=== PATIENT | female | born 1945 | race Caucasian/White ===

== ENCOUNTER → 2017-07-24 12:58 | Outpatient (CLI) | payer MEDICARE, SELFPAY ==
--- NOTE | 2017-07-24 13:06 | CT_ITS ---
STUDY: CT SOFT TISSUE NECK WITH CONTRAST REASON FOR EXAM: Female, 71 years old. Left-sided neck mass times one week RADIATION DOSAGE (If Supplied By Facility): CTDIvol = ( 22.53 ) mGy, DLP = ( 686.35 ) mGycm TECHNIQUE: The patient was scanned in a multi-detector CT scanner. High resolution transaxial imaging was performed following intravenous administration of 100CC ml of Isovue 300 contrast material. Sagittal and coronal images were reconstructed. Individualized dose optimization techniques were used for this CT. COMPARISON: None. FINDINGS: Some images are technically limited due to scanning artifact caused by metallic dental work. There is a hyperdense nodule of the anteroinferior left parotid gland measuring 9 mm. Normal bilateral saloon keeper spaces. Normal bilateral parapharyngeal spaces. Normal bilateral carotid spaces. Normal bilateral sublingual and submandibular glands and spaces. Normal visualized nasopharynx. Normal retropharyngeal space. Normal perivertebral space. Normal visualized bilateral faucial tonsils. The visualized tongue, tongue base and oropharynx are normal. The visualized cervical lymph nodes (levels I-) are within normal size limits, and maintain normal morphology. Normal epiglottis, bilateral vallecula and hypopharynx. The pre-epiglottic and paraglottic adipose spaces are normal. Normal visualized bilateral piriform sinuses, aryepiglottic folds, vocal cords, and arytenoid-cricoid articulations. Normal subglottic trachea. Normal bilateral lobes of the thyroid gland. Normal visualized pulmonary apices. Normal visualized paranasal sinuses. There is multilevel degenerative changes of the cervical spine. 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 Several of the images are limited due to scanning artifact caused by metallic dental work. Electronically Signed: Niko Landrum MD at 20:32 EDT , Service support ,
[2017-07-24 13:36] LABS: CREATININE FINGERSTICK 0.7 mg/dL (0.55-1.02); EGFR FINGERSTICK > 60.0000 mL/min (>60)
== END ==
PROVIDERS: Family Provider Family Medicine; PCP Family Medicine; Visit Provider Family Medicine
DX: R22.1 Localized swelling, mass and lump, neck (principal)
CPT/HCPCS: 70491; Q9967

== ENCOUNTER → 2017-09-17 07:22 | Outpatient (CLI) | payer MEDICARE, SELFPAY ==
--- NOTE | 2017-09-17 07:31 | CT_ITS ---
STUDY: CT SOFT TISSUE NECK WITH CONTRAST REASON FOR EXAM: Female, 71 years old. The patient has a history of left parotid gland nodular density. RADIATION DOSAGE (If Supplied By Facility): CTDIvol = ( 23.13 ) mGy, DLP = ( 623.73 ) mGycm TECHNIQUE: The patient was scanned in a multi-detector CT scanner. High resolution transaxial imaging was performed following intravenous administration of 100CC ml of Isovue 300 contrast material. Sagittal and coronal images were reconstructed. Individualized dose optimization techniques were used for this CT. COMPARISON: Comparison is made with prior study dated July 24, 2017. FINDINGS: The previously seen 9 mm hyperdense nodule in the anterior inferior aspect of the left parotid gland is not seen at this time. Normal bilateral pharmacology associate spaces. Normal bilateral parapharyngeal spaces. Normal bilateral carotid spaces. Normal bilateral sublingual and submandibular glands and spaces. Normal visualized nasopharynx. Normal retropharyngeal space. Normal perivertebral space. Normal visualized bilateral faucial tonsils. The visualized tongue, tongue base and oropharynx are normal. The visualized cervical lymph nodes (levels I-) are within normal size limits, and maintain normal morphology. There is no demonstrated solid or cystic mass lesion. There is no abnormal contrast enhancement. Normal epiglottis, bilateral vallecula and hypopharynx. The pre-epiglottic and paraglottic adipose spaces are normal. Normal visualized bilateral piriform sinuses, aryepiglottic folds, vocal cords, and arytenoid-cricoid articulations. Normal subglottic trachea. Normal bilateral lobes of the thyroid gland. Normal visualized pulmonary apices. Normal visualized paranasal sinuses. There is multilevel degenerative changes of the cervical spine. CT/Soft Tissue Neck WITH Contrast IMPRESSION: The previously seen 9 mm nodular density in the anterior inferior aspect of the left parotid gland is not seen at this time. Electronically Signed: Anup Marcus MD at 11:20 EDT Tel [phone], Service support ,
[2017-09-17 07:41] LABS: CREATININE FINGERSTICK 0.7 mg/dL (0.55-1.02); EGFR FINGERSTICK > 60.0000 mL/min (>60)
== END ==
PROVIDERS: Family Provider Family Medicine; PCP Family Medicine; Visit Provider Family Medicine
DX: R22.1 Localized swelling, mass and lump, neck (principal)
CPT/HCPCS: 70491; Q9967

== ENCOUNTER → 2017-10-08 10:55 | Outpatient (CLI) | payer MEDICARE, SELFPAY ==
--- NOTE | 2017-10-08 11:01 | RAD_ITS ---
STUDY: X-RAY - RIGHT KNEE REASON FOR EXAM: Female, 71 years old. KNEE PAIN, WEIGHTBEARING TECHNIQUE: 2 view(s) of the knee. COMPARISON: None. FINDINGS: Normal visualized distal femur. Normal visualized proximal tibia and fibula. Normal proximal tibiofibular articulation. Normal medial femorotibial compartment. Normal lateral femorotibial compartment. There is mild degenerative arthrosis of the patellofemoral articulation. There is a soft tissue prominence in the suprapatellar region suggesting a small volume joint effusion. The soft tissue structures are unremarkable. RAD/Knee 1 or 2 Views IMPRESSION: Degenerative arthrosis. Electronically Signed: Lj Canchola MD at 11:18 EDT Tel , Service support ,
== END ==
PROVIDERS: Family Provider Family Medicine; PCP Family Medicine; Visit Provider Nurse Practitioner Adult Health
DX: M25.561 Pain in right knee (principal)
CPT/HCPCS: 73560

== ENCOUNTER 2017-10-23 15:46 | Emergency (ER) | payer MEDICARE, SELFPAY ==
[2017-10-23 15:46] VITALS: BP 124/74; PULSE 76; RESP 18; TEMP 37.2; O2SAT 98; BMI 38.9
--- NOTE | 2017-10-23 16:06 | VDLE_ITS ---
Reason For Study: RLE pain RIGHT GSV is normal. RT CFV is spontaneous, phasic, competent and demonstrates normal augmentation. PT unable to tolerate compression, relied on color and PW doppler. FV is compressible, spontaneous, phasic, competent and demonstrates normal augmentation. POP V is compressible, spontaneous, phasic, competent and demonstrates normal augmentation. T/P Trunk is compressible. PTV is compressible. RT PerV is compressible. Procedure Exam performed portable in ED. The study was technically difficult. The exam was diagnostic. A preliminary report was called and/or faxed to ED & Dr. Sánchez @ 5 pm. Interpretation Summary There is no evidence of right lower extremity deep vein thrombosis. Right greater saphenous vein appears patent and compressible segmentally. Technically difficult and limited exam Ordering Physician: Meliton Sánchez Referring Physician: Jeremiah Louis Performed By: Sara Quinones, JAMES, RVT
--- NOTE | 2017-10-23 17:18 | ED.VISSUMM ---
- ER Visit Summary Date of Service: 10/23/17 Chief Complaint: [Right knee pain] History of Present Illness: The patient is a 72 F [presents the emergency department complaint of pain in her right knee that started about a month ago. Patient states that she had been at [employer] walking around and climbing steps and she thinks that may of trigger the discomfort in her right knee. Patient denies any direct trauma or falls. Patient's been seeing her primary care physician and 2 weeks ago had x-rays that showed some arthritic changes. Patient was then referred to Dr. Murrieta who saw her yesterday and told her she may have bursitis in the knee. Patient was to start physical therapy. Patient states that she is having a lot of pain and at times feels like the right knee is in a give out and presents to the ER for evaluation. Patient denies any chest pain or shortness of breath.] Physical Examination: [HEENT-PERRLA, EOMI. Cranial nerves II through XII grossly intact. TMs clear. Mucous membranes moist. No adenopathy. Cardiovascular-regular rate and rhythm without murmur or ectopy Lungs-clear to auscultation, chest wall stable without crepitus or subcu emphysema Abdomen-normoactive bowel sounds, soft, nontender, no rebound or rigidity, no peritoneal signs. Extremities-intact ?4, normal range of motion, normal pulses, atraumatic. Right knee-patient has normal range of motion through flexion and extension. No effusion noted. No ecchymosis or bruising. Patient has some tenderness behind the right knee as well diffusely however no ropes or cords are palpated. She is got normal pulses and normal sensation. Ligamentously stable. Test Results: [Venous Doppler of the right lower extremity obtained was negative for DVT] Emergency Department Course and Treatment: [Patient was given a knee immobilizer and will be given a prescription for Byron] Treatment Plan: [Prescription for Byron and follow-up with orthopedics] Disposition: [Discharged home in stable condition] Impression: [Right knee pain-etiology uncertain] This note was generated with [employer]SB[employer]ation software. It may contain incorrect words, spelling, and punctuation that were not noted in review of the chart prior to signing ED Disposition - Plan for ED Patient: Chief Complaint: Lower Extremity Injury Referrals: Cookie Chan MD [Primary Care Provider] -
--- NOTE | 2017-10-23 17:21 | ED.DCSUM_ITS ---
- ER Visit Summary Date of Service: 10/23/17 Chief Complaint: [Right knee pain] History of Present Illness: The patient is a 72 F [presents the emergency department complaint of pain in her right knee that started about a month ago. Patient states that she had been at [employer] walking around and climbing steps and she thinks that may of trigger the discomfort in her right knee. Patient denies any direct trauma or falls. Patient's been seeing her primary care physician and 2 weeks ago had x-rays that showed some arthritic changes. Patient was then referred to Dr. Murrieta who saw her yesterday and told her she may have bursitis in the knee. Patient was to start physical therapy. Patient states that she is having a lot of pain and at times feels like the right knee is in a give out and presents to the ER for evaluation. Patient denies any chest pain or shortness of breath.] Physical Examination: [HEENT-PERRLA, EOMI. Cranial nerves II through XII grossly intact. TMs clear. Mucous membranes moist. No adenopathy. Cardiovascular-regular rate and rhythm without murmur or ectopy Lungs-clear to auscultation, chest wall stable without crepitus or subcu emphysema Abdomen-normoactive bowel sounds, soft, nontender, no rebound or rigidity, no peritoneal signs. Extremities-intact ?4, normal range of motion, normal pulses, atraumatic. Right knee-patient has normal range of motion through flexion and extension. No effusion noted. No ecchymosis or bruising. Patient has some tenderness behind the right knee as well diffusely however no ropes or cords are palpated. She is got normal pulses and normal sensation. Ligamentously stable. Test Results: [Venous Doppler of the right lower extremity obtained was negative for DVT] Emergency Department Course and Treatment: [Patient was given a knee immobilizer and will be given a prescription for [employer]] Treatment Plan: [Prescription for [employer] and follow-up with orthopedics] Disposition: [Discharged home in stable condition] Impression: [Right knee pain-etiology uncertain] This note was generated with [employer] software. It may contain incorrect words, spelling, and punctuation that were not noted in review of the chart prior to signing ED Disposition - Plan for ED Patient: Chief Complaint: Lower Extremity Injury Referrals: Cookie Chan MD [Primary Care Provider] -
--- NOTE | 2017-10-23 17:22 | DCINST.ED_ITS ---
ED Disposition - Plan for ED Patient: Chief Complaint: Lower Extremity Injury Instructions: ED Knee Pain [facility] Prescriptions: Hydrocodone/Acetaminophen [[place] 5-325 Tablet] 1 - 2 ea PO 4X/DAY PRN PRN 5 Days #20 tab PRN Reason: Pain Referrals: Cookie Chan MD [Primary Care Provider] - Rick Antoine MD [STAFF PHYSICIAN] - 3-5 Days
[2017-10-23 17:54] VITALS: RESP 18
== END 2017-10-23 17:54 | disposition home or self-care (01) ==
PROVIDERS: Emergency Provider Emergency Medicine; Family Provider Family Medicine; PCP Family Medicine
DX: M25.561 Pain in right knee (principal); M79.604 Pain in right leg; I25.10 Atherosclerotic heart disease of native coronary artery without angina pectoris; E78.00 Pure hypercholesterolemia, unspecified; I48.91 Unspecified atrial fibrillation; Z86.73 Personal history of transient ischemic attack (TIA), and cerebral infarction without residual deficits; Z79.01 Long term (current) use of anticoagulants
CPT/HCPCS: 93971; 99283

== ENCOUNTER 2018-05-13 11:00 | Outpatient (RCR) | payer MEDICARE, SELFPAY ==
--- NOTE | 2017-10-29 09:38 | HP.PTEVAL ---
Patient's Visit Information RAYMOND ESPINOZA is a 72 year old F referred to Physical Therapy by Kiran Louis with a diagnosis of Right Knee Pain, OA, Bursitis. Date of Evaluation: 10/29/17 Physical Therapist: Stormy Welch - Visit Plan Frequency: 2x /Week Duration: 4 Weeks Plan: Focus on LE and core s/s- functional mobility in an aquatic setting - Subjective Subjective: Patient reports that she started having when she went to [employer] 2nd week in August/ week of September with steep steps- when she came back she was having problems. Came home and got new shoes in hope that it would help. Ordered and x-ray and diagnosed with OA, gave her Ibuprofen and a wrap and then saw Dr. Louis. Saw Dr. Louis and he asked if she wanted an injection she declined- next day worked and went to ER when she couldn't walk. Gave her a brace and did a doplar which was negative. Back to Dr. Louis yesterday and he did an injection and told her to come to PT. Now that she has had the injection its much better- she can put more weight through the LE. 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 Did not use AD before the injury. Pain is along the anterior and posterior knee Worst: 8/10 Agg: activity or weight bearing. Eases: biofreeze, rest Best: 0/10. Pain radiates to the mid calf but not since the injection. Describes the pain as sharp and shooting. No N/T. Has never had knee pain or knee injuries. Sleep: disturbed- back sleeper she has sleep apnea. Before injury she was coming 1x a week using the TM and the weights. She hasn't been here due to pain and scheudling conflict. Plans to get back into it. Lives in a two story home- she crawls up the stairs and slides down on her buttocks. PMHx: 8 years ago TIA, a-fib Meds: asprin, warfarin, lipitor - Objective Posture: FH, RS, increased kyphosis- pt is overweight. Gait: antalgic- decreased stance on the right LE- poor heel/toe pattern- using a straight cane that is to tall and using on the right side. Stairs: asc/desc 8 non recip with 1 HR and straight cane- poor control and uses significant UE A. HR/TR: able with UE A for balance. SLS: 15 sec without LOB. Palpation: not tender to touch. Sensation: intact. ROM: 5-110 degrees with pain at end ranges- reports stiff. Strength: Ankle: 4+/5, Knee: 4/5, Hip: 4/5 Core: poor. Flex: HS: mild, Gastroc: mild - Goals Goal 1:: Patient will be I with HEP and progression Goal Time Frame: 4-6 Weeks Goal 2:: Patient will ambulate >300 feet with a normalized gait pattern and no AD. Goal Time Frame: 4-6 Weeks Goal 3:: Patient will asc/desc 8 stairs recip with 1 HR and good control Goal Time Frame: 4-6 Weeks Goal 4:: Patient will report sleeping through the night with 0/10 pain Goal Time Frame: 4-6 Weeks Goal 5:: Patient will demo 4+/5 strength in LE where deficit Goal Time Frame: 4-6 Weeks - Rehabilitation Potential Physical Therapy Diagnosis: Patient presents with hypomobility- she has decreased painfree ROM, strength and muscular endurance leading to abnormal gait pattern and increased pain with ADL's. Rehabilitation Potential: Good - Anticipated Interventions Patient/Client Instruction: Educate patient on: Benefits of Fitness Program Therapeutic Exercise to Include: Strength training, Endurance training, Body mechanics, Postural training, Flexibilty training, Gait and locomotor training, In an aquatic setting, Passive ROM, Active ROM, Dynamic Lumbar Stabilization For the Purpose of:: To improve muscle performance and motor function Thank you for the opportunity to evaluate your patient. For Medicare and Medicare HMO plans, please review the plan of care and approve it. It will need to be FAXED BACK to us at [phone] for Medicare purposes. Please let me know if there are questions or concerns regarding this plan of care. Physician Signature: Date:
--- NOTE | 2017-11-27 14:04 | HP.PTREVAL_ITS ---
Kiran Louis, It has been my pleasure to treat RAYMOND ESPINOZA over the last 10 visits for Right Knee Pain, OA, Bursitis. Please see the progress note below for an update on the physical therapy plan of care! Subjective: Pt still has some R knee pain. Pt reports that last time she was in here she could barely walk in. Pt likes the pool to continue with PT. Pt does have Silver Sneakers to keep up with water therapy. Pt reported that they did an x-ray and it did show some arthitis. Pt is getting stronger for sure. She has a little bit of trouble gettingout of a chair. SHe does not trust the R leg. Objective/Function: LE MMT: B hip flex 3+/5, B knee flex 4-/5, R knee ext 4-/5 and L 4/5, B jip abd 4-/5. Gait: Walks with slightly decreased stance time on the R and decrease stride. Stairs: Walks up and down stairs with a step 2 pattern Plan Plan: 2X/ week for 4 additional weeks to continue with LE strength, gait mechanics, stair negotation with I AT [facility] to do through silver sneakers Goals Goal 1:: Patient will be I with HEP and progression Goal Time Frame: 4-6 Weeks Goal 2:: Patient will ambulate >300 feet with a normalized gait pattern and no AD. Goal Time Frame: 4-6 Weeks Goal Progress: Progressing Goal 3:: Patient will asc/desc 8 stairs recip with 1 HR and good control Goal Time Frame: 4-6 Weeks Goal Progress: Progressing Goal 4:: Patient will report sleeping through the night with 0/10 pain Goal Time Frame: 4-6 Weeks Goal Progress: Progressing Goal 5:: Patient will demo 4+/5 strength in LE where deficit Goal Time Frame: 4-6 Weeks Goal Progress: Progressing Anticipated Interventions Patient/Client Instruction: Educate patient on: Benefits of Fitness Program Therapeutic Exercise to Include: Strength training, Endurance training, Body mechanics, Postural training, Flexibilty training, Gait and locomotor training, In an aquatic setting, Passive ROM, Active ROM, Dynamic Lumbar Stabilization For the Purpose of:: To improve muscle performance and motor function Please do not hesitate to contact me at [phone] by phone or Fax: if you have questions or concerns regarding this new plan of care! Sincerely, July Najera
--- NOTE | 2017-12-31 16:49 | HP.PTREVAL ---
Kiran Louis, It has been my pleasure to treat RAYMOND ESPINOZA over the last 19 visits for Right Knee Pain, OA, Bursitis. Please see the progress note below for an update on the physical therapy plan of care! Subjective: Just completed water therapy and loved it. Feeling much better, walking now. Shooting pain down leg at night, same as before started therapy. Functionally better, pain as not severe. Use biofreeze. Cortisone shot helping. Sometimes difficult rising from sitting and getting into bathtub. Pt. has silver sneakers. Pt. willing to try land therapy for a couple weeks. Objective/Function: Gait: WFL, increased trunk flexion. Posture: rounded shoulders, FHP. Stairs: negotiate reciprocally with 2 HR; moderately uses UE to pull self forward when ascending. ROM: LE WFL. Strength: LE 4+/5 Plan Plan: Land therapy focusing on LE strength, endurance, and negotiating stairs with decreased use of UE. Goals Goal 1:: Patient will be I with HEP and progression Goal Time Frame: 4-6 Weeks Goal Progress: Progressing Goal 2:: Patient will ambulate >300 feet with a normalized gait pattern and no AD. Goal Time Frame: 4-6 Weeks Goal Progress: Progressing Goal 3:: Patient will asc/desc 8 stairs recip with 1 HR and good control Goal Time Frame: 4-6 Weeks Goal Progress: Progressing Goal 4:: Patient will report sleeping through the night with 0/10 pain Goal Time Frame: 4-6 Weeks Goal Progress: Progressing Goal 5:: Patient will demo 4+/5 strength in LE where deficit Goal Time Frame: 4-6 Weeks Goal Progress: Goal Met Anticipated Interventions Patient/Client Instruction: Educate patient on: Benefits of Fitness Program Therapeutic Exercise to Include: Strength training, Endurance training, Body mechanics, Postural training, Flexibilty training, Gait and locomotor training, In an aquatic setting, Passive ROM, Active ROM, Dynamic Lumbar Stabilization For the Purpose of:: To improve muscle performance and motor function Please do not hesitate to contact me at [phone] by phone or if you have questions or concerns regarding this new plan of care! Sincerely, Stormy Welch
--- NOTE | 2018-02-03 10:31 | HP.PTREVAL ---
Kiran Louis, It has been my pleasure to treat RAYMOND ESPINOZA over the last 26 visits for Right Knee Pain, OA, Bursitis. Please see the progress note below for an update on the physical therapy plan of care! Subjective: Patient reports that the knee pain is only at night and it?s a sharp pain 8-10. It happened 2x this week- back sleeper only- does not put a pillow under her knees. Thinks that therapy helped a lot. Feels that she is 80% better. Feels a lot that the land exercises are good. Objective/Function: Gait: WFL, increased trunk flexion- no AD. Posture: rounded shoulders, FHP- can correct but does not maintain. Stairs: negotiate reciprocally with 2 HR; mildly uses UE to pull self forward when ascending. ROM: LE WFL. Strength: LE 4+/5 Plan Plan: FOCUS ON A GYM PROGRAM FOR [employer] [place]- plan to d/c to HEP after next re-evaluation Goals Goal 1:: Patient will be I with HEP and progression Goal Time Frame: 4-6 Weeks Goal Progress: Progressing Goal 2:: Patient will ambulate >300 feet with a normalized gait pattern and no AD. Goal Time Frame: 4-6 Weeks Goal Progress: Progressing Goal 3:: Patient will asc/desc 8 stairs recip with 1 HR and good control Goal Time Frame: 4-6 Weeks Goal Progress: Progressing Goal 4:: Patient will report sleeping through the night with 0/10 pain Goal Time Frame: 4-6 Weeks Goal Progress: Progressing Goal 5:: Patient will demo 4+/5 strength in LE where deficit Goal Time Frame: 4-6 Weeks Goal Progress: Goal Met Anticipated Interventions Patient/Client Instruction: Educate patient on: Benefits of Fitness Program Therapeutic Exercise to Include: Strength training, Endurance training, Body mechanics, Postural training, Flexibilty training, Gait and locomotor training, In an aquatic setting, Passive ROM, Active ROM, Dynamic Lumbar Stabilization For the Purpose of:: To improve muscle performance and motor function Please do not hesitate to contact me at [phone] by phone or if you have questions or concerns regarding this new plan of care! Sincerely, Stormy Welch
--- NOTE | 2018-03-14 09:41 | HP.PTDCSUM ---
HP - PT D/C Summary It has been my pleasure to treat RAYMOND ESPINOZA under orders from Jeremiah Louis MD, for the diagnosis of Right Knee Pain, OA, Bursitis for a total of 26 visit(s). Discharge Date: Please see the following information for a summary of their discharge status. - Subjective Subjective: Patient reports that the knee pain is only at night and it?s a sharp pain 8-9/10. It happened 2x this week- back sleeper only- does not put a pillow under her knees. Thinks that therapy helped a lot. Feels that she is 80% better. Feels a lot that the land exercises are good. - Pain R knee Pain Intensity (Out of 10): 0 - Overall Improvement % Improvement: 80 - Objective Objective/Function: Gait: WFL, increased trunk flexion- no AD. Posture: rounded shoulders, FHP- can correct but does not maintain. Stairs: negotiate reciprocally with 2 HR; mildly uses UE to pull self forward when ascending. ROM: LE WFL. Strength: LE 4+/5 - Goals Goal 1:: Patient will be I with HEP and progression Goal Progress: Progressing Goal 2:: Patient will ambulate >300 feet with a normalized gait pattern and no AD. Goal Progress: Progressing Goal 3:: Patient will asc/desc 8 stairs recip with 1 HR and good control Goal Progress: Progressing Goal 4:: Patient will report sleeping through the night with 0/10 pain Goal Progress: Progressing Goal 5:: Patient will demo 4+/5 strength in LE where deficit Goal Progress: Goal Met - Plan Plan: FOCUS ON A GYM PROGRAM FOR [employer]- plan to d/c to HEP after next re-evaluation - D/C Information If there are questions or concerns regarding this patient's physical therapy, please feel free to call me at [phone]. Thank you for the referral of this patient. Sincerely, MILAGROS MezaT
--- NOTE | 2018-05-13 11:16 | HP.PTDCSUM ---
HP - PT D/C Summary It has been my pleasure to treat RAYMOND ESPINOZA under orders from Jeremiah Louis MD, for the diagnosis of Right Knee Pain, OA, Bursitis for a total of 32 visit(s). Discharge Date: Please see the following information for a summary of their discharge status. - Subjective Subjective: Patient reports she is doing pretty well and owes it all to the girls. She has occasional pain in the knee- Dr. Louis told her to take Tylenol Extra Strength. Plans to continue to do her home exercise program with [facility]. Is not using her cane at all. - Pain R knee Pain Intensity (Out of 10): 0 - Overall Improvement % Improvement: 80 - Objective Objective/Function: Gait: WFL, increased trunk flexion- no AD. Posture: rounded shoulders, FHP- can correct but does not maintain. Stairs: negotiate reciprocally with 1 HR; uses UE for balance not pulling. ROM: LE WFL. Strength: Ankle: 5/5, Knee: 5/5, Hip: 4+/5 Core: fair - Goals Goal 1:: Patient will be I with HEP and progression Goal Progress: Goal Met Goal 2:: Patient will ambulate >300 feet with a normalized gait pattern and no AD. Goal Progress: Goal Met Goal 3:: Patient will asc/desc 8 stairs recip with 1 HR and good control Goal Progress: Goal Met Goal 4:: Patient will report sleeping through the night with 0/10 pain Goal Progress: Goal Met Goal 5:: Patient will demo 4+/5 strength in LE where deficit Goal Progress: Goal Met - Plan Plan: Discharge to [facility] through [facility] - D/C Information If there are questions or concerns regarding this patient's physical therapy, please feel free to call me at [phone]. Thank you for the referral of this patient. Sincerely, Stormy Welch DPT
== END 2018-05-13 19:00 | disposition home or self-care (01) ==
LOC: PT 11:00
PROVIDERS: Family Provider Family Medicine; PCP Family Medicine; Visit Provider Family Medicine
DX: M70.51 Other bursitis of knee, right knee (principal); M19.90 Unspecified osteoarthritis, unspecified site
CPT/HCPCS: 97110; 97113; 97162; 97164; 97530

== ENCOUNTER → 2018-10-28 15:37 | Outpatient (CLI) | payer MEDICARE, SELFPAY ==
[2018-10-28 17:32] LABS: Absolute Lymphocyte Count 1.73 X10^3/uL (0.83-4.51); Absolute Neutrophil Count 5.5 X10^3/uL (2.0-7.7); Basophil# 0.06 X10^3/uL; Basophil% 0.7 % (0-1); Eosinophil# 0.27 X10^3/uL; Eosinophils% 3.3 % (0-5); Hematocrit 36.1 % (37-47); Hemoglobin 11.9 g/dL (12.0-15.0); Lymphocyte # 1.73 X10^3/ul (4.0); Lymphocyte % 21.4 % (19-41); Mean Corpuscular Hgb 30.3 pg (27.0-32.0); Mean Corpuscular Volume 91.9 fL (81-99); Mean Platelet Vol. 10.1 fl (6.2-12.0); Monocyte# 0.57 X10^3/uL; NRBC Flagged by Analyzer 0 % (0-5); Neutrophil # 5.45 X10^3/uL (2.7-7.7); Neutrophil % 67.4 % (47-70); Platelet Count 298 K/mm3 (150-450); RBC Distribution Width CV 13.4 % (11.6-14.6); Red Blood Count 3.93 M/mm3 (4.2-5.4); White Blood Count 8.1 K/mm3 (4.4-11.0)
[2018-10-28 18:11] LABS: Albumin, Serum 3.3 g/dL (3.2-5.0); BUN 18 mg/dL (7-18); BUN/Creat Ratio 22.3 RATIO (10-20); Creatinine, Serum 0.81 mg/dL (0.55-1.02); EST Glomerular Filtration Rate 74 mL/min (>60); Est Glom Filt Rate - Afr Amer 89 mL/min (>60); Glucose 110 mg/dL (74-106); Protein, Total 7.2 g/dL (6.4-8.2)
[2018-10-28 18:12] LABS: ALB/GLOB Ratio 0.8 RATIO (0.9-2.4); AST(SGOT) 20 U/L (15-37); Alanine Aminotransfer ALT/SGPT 23 U/L (13-56); Alkaline Phosphatase 84 U/L (45-117); Anion Gap 6 (5-15); Calcium,Total 8.9 mg/dL (8.5-10.1); Chloride 108 mmol/L (98-107); Globulin 3.9 g/dL (2.2-4.2); Potassium 4.2 mmol/L (3.5-5.1); Sodium Level 142 mmol/L (136-145); Thyroid Stim Hormone (TSH) 1.37 uIU/mL (0.358-3.74)
== END ==
PROVIDERS: Family Provider Family Medicine; PCP Family Medicine; Referring Provider Family Medicine; Visit Provider Family Medicine
DX: R53.81 Other malaise (principal); R53.83 Other fatigue
CPT/HCPCS: 36415; 80053; 84443; 85025

== ENCOUNTER → 2020-03-28 09:02 | Outpatient (CLI) | payer MEDICARE, SELFPAY ==
[2020-03-28 10:10] LABS: International Normalized Ratio 2.6; Prothrombin Time (Protime)PT. 27.8 SECONDS (11.7-14.9)
== END ==
PROVIDERS: PCP Family Medicine; Referring Provider Family Medicine; Visit Provider Nurse Practitioner Adult Health
DX: I48.91 Unspecified atrial fibrillation (principal)
CPT/HCPCS: 36415; 85610

== ENCOUNTER 2020-08-01 10:46 | Outpatient (RCR) | payer SELFPAY | END 2020-08-15 23:59 | LOC: NS 10:46 | PROVIDERS: PCP Family Medicine | DX: E66.9 Obesity, unspecified (principal) | CPT/HCPCS: 97802 ==

== ENCOUNTER → 2020-08-02 08:03 | Outpatient (CLI) | payer MEDICARE, SELFPAY ==
--- NOTE | 2020-08-02 08:07 | BI_ITS ---
MAMMOGRAPHY - BILATERAL SCREENING 3-D TOMOSYNTHESIS REASON FOR EXAM: Female, 74 years old. Routine screening PERTINENT HISTORY: No significant family history. TECHNIQUE: 2-D mammograms and 3-D Tomosynthesis of the breast (s) were performed. CAD was performed. COMPARISON: 03/06/2019 FINDINGS: The breast composition is composed of scattered fibroglandular density. Scattered benign calcifications are seen. No dense spiculated masses or suspicious microcalcifications are identified. No architectural distortion is identified. There is no skin thickening or retraction. There has been no significant change since the prior study. BI/SCRN MAMM (CAD)W/AR BILAT IMPRESSION: No mammographic signs of malignancy. Routine yearly mammograms recommended. ASSESSMENT CATEGORY: BIRADS Category 2: Benign. A letter regarding these results will be sent to the patient by the facility within 30 days. FOLLOW UP RECOMMENDATION: Yearly follow up mammogram recommended. (A) Approximately 10% of breast cancers are not detected by mammography. A normal mammogram should not delay biopsy of a clinically suspicious abnormality. Electronically Signed: Elmer Sutherland MD at 9:55 EDT , Service support ,
== END ==
PROVIDERS: PCP Family Medicine; Referring Provider Family Medicine; Visit Provider Family Medicine
DX: Z12.31 Encounter for screening mammogram for malignant neoplasm of breast (principal)
CPT/HCPCS: 77063; 77067

== ENCOUNTER → 2020-08-09 14:56 | Outpatient (CLI) | payer MEDICARE, SELFPAY ==
[2020-08-09 18:18] LABS: AST(SGOT) 21 U/L (15-37); Alanine Aminotransfer ALT/SGPT 22 U/L (13-56); Cholesterol 142 mg/dL (200); High Density Lipoprotein 45 mg/dL; Triglycerides 194 mg/dL; Very Low Density Lipoprotein 39 mg/dL (5-40)
== END ==
PROVIDERS: PCP Family Medicine; Referring Provider Family Medicine; Visit Provider Family Medicine
DX: E78.00 Pure hypercholesterolemia, unspecified (principal); I48.91 Unspecified atrial fibrillation
CPT/HCPCS: 36415; 80061; 84450; 84460

== ENCOUNTER 2020-08-31 11:45 | Outpatient (RCR) | payer SELFPAY | END 2020-09-14 23:59 | LOC: NS 11:45 | PROVIDERS: PCP Family Medicine | DX: Z71.3 Dietary counseling and surveillance (principal) | CPT/HCPCS: 97803 ==

== ENCOUNTER 2020-10-04 11:30 | Outpatient (RCR) | payer SELFPAY | END 2020-10-15 23:59 | LOC: NS 11:30 | PROVIDERS: PCP Family Medicine | DX: Z71.3 Dietary counseling and surveillance (principal) | CPT/HCPCS: 97803 ==

== ENCOUNTER 2020-11-09 13:30 | Outpatient (RCR) | payer SELFPAY | END 2020-11-09 23:59 | disposition home or self-care (01) | LOC: NS 13:30 | PROVIDERS: PCP Family Medicine | DX: Z71.3 Dietary counseling and surveillance (principal) | CPT/HCPCS: 97803 ==

== ENCOUNTER 2021-07-04 11:05 | Outpatient (RCR) | payer SELFPAY | END 2021-07-15 23:59 | LOC: NS 11:05 | PROVIDERS: PCP Family Medicine | DX: Z71.3 Dietary counseling and surveillance (principal) | CPT/HCPCS: 97802 ==

== ENCOUNTER 2021-07-25 11:23 | Outpatient (RCR) | payer SELFPAY | END 2021-08-15 23:59 | LOC: NS 11:23 | PROVIDERS: PCP Family Medicine | DX: Z71.3 Dietary counseling and surveillance (principal); E66.9 Obesity, unspecified; Z68.39 Body mass index [BMI] 39.0-39.9, adult | CPT/HCPCS: 97803 ==

== ENCOUNTER → 2021-08-04 | Outpatient (CLI) | payer MEDICARE, SELFPAY ==
--- NOTE | 2021-08-04 08:39 | BI_ITS ---
MAMMOGRAPHY - BILATERAL SCREENING REASON FOR EXAM: Female, 75 years old. Routine annual screening examination. PERTINENT HISTORY: Non-contributory. TECHNIQUE: Digital bilateral breast ar (3D mammographic acquisition) in the CC and MLO projections. 2-D mediolateral oblique (MLO) and craniocaudad (CC) views of both breasts were obtained. CAD: Full Field Digital Mammography with Computer Added Detection was performed. COMPARISON: Comparison is made with prior study dated 08/02/2020 and 08/28/2011. FINDINGS: Breast Composition: There are scattered areas of fibroglandular density. There are no dominant masses or suspicious calcifications. No other significant abnormalities are identified. There has been no significant change since the prior study. BI/SCRN MAMM (CAD)W/AR BILAT IMPRESSION: Stable bilateral screening mammogram. Yearly follow-up mammogram recommended. (A) ASSESSMENT CATEGORY: BIRADS Category 1: Negative. A letter regarding these results will be sent to the patient by the facility within 30 days. Approximately 10% of breast cancers are not detected by mammography. A normal mammogram should not delay biopsy of a clinically suspicious abnormality. [id number] Electronically Signed: Anup Marcus MD at 9:57 EDT ,
== END | disposition home or self-care (01) ==
LOC: OPBI 08:38
PROVIDERS: PCP Family Medicine; Visit Provider Registered Nurse
DX: Z12.31 Encounter for screening mammogram for malignant neoplasm of breast (principal)
CPT/HCPCS: 77063; 77067

== ENCOUNTER 2021-09-13 09:00 | Outpatient (RCR) | payer SELFPAY | END 2021-09-14 23:59 | LOC: NS 09:00 | PROVIDERS: PCP Family Medicine | DX: Z71.3 Dietary counseling and surveillance (principal); E66.9 Obesity, unspecified; Z68.39 Body mass index [BMI] 39.0-39.9, adult | CPT/HCPCS: 97803 ==

== ENCOUNTER → 2022-05-22 | Outpatient (CLI) | payer MEDICARE, SELFPAY ==
[2022-05-22 12:50] LABS: Absolute Lymphocyte Count 1.47 X10^3/uL (0.83-4.51); Absolute Neutrophil Count 4.5 X10^3/uL (2.0-7.7); Basophil# 0.07 X10^3/uL; Eosinophil# 0.23 X10^3/uL; Eosinophils% 3.4 % (0-5); Hematocrit 38.4 % (37-47); Hemoglobin 12.1 g/dL (12.0-15.0); Lymphocyte # 1.47 X10^3/ul (0.83-4.51); Lymphocyte % 21.8 % (19-41); Mean Corp Hgb Conc 31.5 g/dL (32-36); Mean Corpuscular Hgb 29.5 pg (27.0-32.0); Mean Corpuscular Volume 93.7 fL (81-99); Mean Platelet Vol. 10.1 fl (6.2-12.0); Monocyte# 0.49 X10^3/uL; Monocyte% 7.3 % (0-10); NRBC Flagged by Analyzer 0 % (0-5); Neutrophil # 4.46 X10^3/uL (2.7-7.7); Neutrophil % 66.4 % (47-70); Platelet Count 292 K/mm3 (150-450); RBC Distribution Width CV 13.8 % (11.6-14.6); RBC Distribution Width SD 47.4 fl (35.1-43.9); White Blood Count 6.7 K/mm3 (4.4-11.0)
[2022-05-22 13:06] LABS: Vitamin B12 647 pg/mL (211-911)
[2022-05-22 13:23] LABS: ALB/GLOB Ratio 0.9 RATIO (0.9-2.4); AST(SGOT) 21 U/L (15-37); Alanine Aminotransfer ALT/SGPT 20 U/L (13-56); Albumin, Serum 3.5 g/dL (3.2-5.0); Alkaline Phosphatase 71 U/L (45-117); Anion Gap 7 (5-15); BUN 17 mg/dL (7-18); BUN/Creat Ratio 21.7 RATIO (10-20); Calcium,Total 9.1 mg/dL (8.5-10.1); Chloride 105 mmol/L (98-107); Creatinine, Serum 0.78 mg/dL (0.55-1.02); EST Glomerular Filtration Rate 76 mL/min (>60); Est Glom Filt Rate - Afr Amer 91 mL/min (>60); Globulin 3.8 g/dL (2.2-4.2); Glucose 89 mg/dL (74-106); Potassium 4.2 mmol/L (3.5-5.1); Protein, Total 7.3 g/dL (6.4-8.2); Sodium Level 139 mmol/L (136-145)
== END | disposition home or self-care (01) ==
LOC: MFPLAB 09:54
PROVIDERS: PCP Family Medicine; Visit Provider Nurse Practitioner Family
DX: I48.91 Unspecified atrial fibrillation (principal); R25.1 Tremor, unspecified
CPT/HCPCS: 36415; 80053; 82607; 85025

== ENCOUNTER → 2022-09-25 | Outpatient (CLI) | payer MEDICARE, SELFPAY ==
--- NOTE | 2022-09-25 12:24 | BI_ITS ---
MAMMOGRAPHY - BILATERAL SCREENING REASON FOR EXAM: Female, 76 years old. Routine annual screening examination. PERTINENT HISTORY: Non-contributory. TECHNIQUE: Digital bilateral breast ar (3D mammographic acquisition) in the CC and MLO projections. 2-D mediolateral oblique (MLO) and craniocaudad (CC) views of both breasts were obtained. CAD: Full Field Digital Mammography with Computer Added Detection was performed. COMPARISON: Comparison is made with prior study dated August 04, 2021 and August 02, 2020. FINDINGS: Breast Composition: There are scattered areas of fibroglandular density. There are no dominant masses or suspicious calcifications. No other significant abnormalities are identified. There has been no significant change since the prior study. BI/SCRN MAMM (CAD)W/AR BILAT IMPRESSION: Stable bilateral screening mammogram. Yearly follow-up mammogram recommended. (A) ASSESSMENT CATEGORY: BIRADS Category 1: Negative. A letter regarding these results will be sent to the patient by the facility within 30 days. Approximately 10% of breast cancers are not detected by mammography. A normal mammogram should not delay biopsy of a clinically suspicious abnormality. [id number] Electronically Signed: Anup Marcus MD at 13:40 EDT ,
--- NOTE | 2022-09-25 12:31 | BD_ITS ---
STUDY: DUAL ENERGY X-RAY ABSORPTIOMETRY / DXA REASON FOR EXAM: Female, 76 years old. [id number] TECHNIQUE: Bone Mineral Density (BMD) measurements of lumbar spine and bilateral hips were obtained. COMPARISON: None. FINDINGS: Lumbar Spine (L1-L4): g/cm2 (1.139) / T-score (1.1) / Z-score (3.6) Findings are suggestive of normal bone density with a low fracture risk. Left Femur Total: g/cm2 (0.893) / T-score (-0.4) / Z-score (1.5) Left Femoral Neck: g/cm2 (0.690) / T-score (-1.4) / Z-score (0.8) Right Femur Total: g/cm2 (0.796) / T-score (-1.2) / Z-score (0.7) Right Femoral Neck: g/cm2 (0.661) / T-score (-1.7) / Z-score (0.5) BD/Dexa Bone Density Study IMPRESSION: The patient is considered osteopenic as outlined below according to World Clive Organization (WHO) criteria with a moderate fracture risk. Reference Information: The T-score is the number of standard deviations above or below the standard which is normal for young adults at their peak bone mineral density. The World Health Organization (WHO) interprets the T-scores as follows: Above -1 Normal bone density Between -1 and -2.5 Osteopenia Equal to / or below -2.5 Osteoporosis As a practical clinical guideline, osteopenia may be graded as follows: Mild -1 through -1.5 Moderate -1.6 through -2.0 Severe -2.1 through -2.4 The Z-score is the number of standard deviations above or below age-matched controls. A Z-score of less than -1.5 would be considered abnormal. References: 1. NIH Osteoporosis and Related Bone Diseases www osteo.org 2. International Society for Clinical Densitometry www iscd.org 3. National Osteoporosis Foundation www nof.org Electronically Signed: Anup Marcus MD at 9:06 EDT ,
== END | disposition home or self-care (01) ==
LOC: OPBD 12:22
PROVIDERS: PCP Family Medicine; Referring Provider Family Medicine; Visit Provider Family Medicine
DX: Z12.31 Encounter for screening mammogram for malignant neoplasm of breast (principal); N95.9 Unspecified menopausal and perimenopausal disorder
CPT/HCPCS: 77063; 77067; 77080

== ENCOUNTER → 2022-10-04 | Outpatient (CLI) | payer MEDICARE, SELFPAY ==
--- NOTE | 2022-10-04 09:22 | RAD_ITS ---
INDICATION: pain EXAMINATION/TECHNIQUE: X-RAY - XR Spine Lumbar Comp W/ Bending Min 6 Views COMPARISON: FINDINGS: VERTEBRAE: Preserved vertebral body height. No fracture. There is grade 1 anterolisthesis of L4 and L5 which gets worse on flexion measuring 1.2 cm compared to 1 cm on extension.. Preservation of the normal lumbar lordosis. No significant facet arthropathy. DISCS: There is multilevel osteophyte formation and endplate spondylosis. INCLUDED ABDOMEN: Included bowel gas pattern is non-obstructive. RAD/L/S Spine w Bend Min 6 Vw IMPRESSION: Degenerative changes. L4/5 spondylolisthesis appearing worse on flexion. Electronically Signed: Warner Tamez, at 9:54 EDT ,
== END | disposition home or self-care (01) ==
LOC: MTRAD 09:12
PROVIDERS: PCP Family Medicine; Visit Provider Nurse Practitioner Family
DX: M54.50 Low back pain, unspecified (principal)
CPT/HCPCS: 72114

== ENCOUNTER 2022-12-13 18:00 | Outpatient (RCR) | payer MEDICARE, SELFPAY ==
--- NOTE | 2022-10-18 18:44 | HP.PTEVAL ---
Patient's Visit Information Visit Information Visit Information: RAYMOND ESPINOZA is a 77 year old F referred to Physical Therapy by Dr. Cookie Chan MD with a diagnosis of lumbar degeneration?. Date of Evaluation: 10/18/22 Physical Therapist: Clark Ramsey, DPT, OCS, CSCS Visit Plan Frequency: 2-3x /Week Duration: 4-6 Weeks Plan: 2-3x/week for 4 weeks for 1. pelvic and LB AROM progression(given PPT and trunk rotation today), quad stretching 2. core strength on mat to HEP 3. Work to I gym core, LE and postural program for [employer] I. consider aquatic therapy if improvement not happening. Subjective Subjective: No previous LBP. Fell on Day planting bulbs in garden. fell into her and knocked her over onto sidewalk onto back. Back has hurt intermittently ever since. worse in the am and stays bending over. 2-3 Tylenol take care of pain for rest of day. Pain is across LB. No leg symptons or numbness or tingling. Sleep is not interrupted. Activities during day are normal but slows down. Forgot order from Dr. Chan. Had heart tests recently which were OK. Not employed. Spends day working around house which is greatly slowed. Wants to get adriana into exercises Silver [employer] ID machines. May want water ex also. Pain LBP: Pain Intensity (Out of 10): 0 Pain Intensity Range: 0 and 7 Comment: worse in am. Objective Objective: Walks hunched over but I and no pain today. Trasnfer chair I, bed down I, up from supine with assist. Good balance with ambulation. Posture is flat lordosis, kyphotic t/s, stiff with walking, protracted scap. Quads and psoas mod tight B. No tenderness in lumbar paraspinals and I am unable to ellicit pain with any movements except ext in middle of LB. L/S AROM ext barely to neutral and painful, flexion mod limited and stretchy, SB are mod limited without pain. Hip aROM ext to 4 degrees, flexion to 80, poor movement in hips and pelvis due to weakness. core strength 3 abs and extensor. Hip strength 3 ext, abd and 3+ flexion. knee strength quads 3+ and HS 4- B. ankle strength 4 B. reflexes 2/3 patella and achilles Sensation WNL to gross light touch in LE. - slump - SLR Very unstable with pelvic movements and poor motor control in pelvis Balance/Special Test Scores Oswestry Low Back Score: 6 Goals Goal 1:: LBP in am upon waking 1/10 at worst and manageable Goal Time Frame: 4-6 Weeks Goal 2:: Overall LBP 90% better Goal Time Frame: 4-6 Weeks Goal 3:: Patient I in management of LBP with ROM and strength at home to core and gym ex program for [employer] [place]. Goal Time Frame: 4-6 Weeks Goal 4:: Hold pelvis in neutral with hip flex testing seated Goal 5:: No need for tylenol each morning to manage pain Goal Time Frame: 4-6 Weeks Rehabilitation Potential Physical Therapy Diagnosis: degeneritve oa in lumbar exacerbated by weakness and fall. Rehabilitation Potential: Fair Anticipated Interventions Patient/Client Instruction: Educate patient on: Condition and Plan of Care For the Purpose of:: To decrease pain, To increase ROM, To improve muscle performance and motor function and To increase tolerance to activity/condition/position Therapeutic Exercise to Include: Strength training, Postural training, In an aquatic setting, Passive ROM, Active ROM and Dynamic Lumbar Stabilization For the Purpose of:: To decrease pain, To increase ROM, To improve nutrient delivery to tissue, To increase tolerance to activity/condition/position, To improve ability of physical actions for home/community/work/leisure and To improve gait and locomotor functions Text: Thank you for the opportunity to evaluate your patient. For Medicare and Medicare HMO plans, please review the plan of care and approve it. It will need to be FAXED BACK to us at [phone] for Medicare purposes. For Medicare only, by signing this I certify the plan of care. Please let me know if there are questions or concerns regarding this plan of care. Physician Signature: Date:
--- NOTE | 2022-12-13 18:54 | HP.PTREVAL ---
Re-Evaluation Intro: Dr. Cookie Chan MD, It has been my pleasure to treat RAYMOND ESPINOZA over the last 13 visits for lumbar degeneration?. Please see the progress note below for an update on the physical therapy plan of care! Subjective Subjective: No pain anymore. 100% better. none in a while. Avoiding nothing at home and life is normal. Sees doctor next week. Not overly confident with doing exercises I but willing to try and use graduate assistant athletic trainer if needed. Objective Objective/Function: Good posture today and walking without hunching, Lumbar AROM is mod limited in extension but no pain, flexion and SB are as expected and not painful. subjective much better. Will continue via [employer] and call if problems. Plan Plan Plan: f/u one time in 3 weeks to ensure transtion to I in gym goes well and d/c if doing better. Balance/Gait/Functional tests Balance/Special Test Scores Functional Gait Assessment Score: 24 % Disability: 20.0000 Oswestry Low Back Score: 0 Goals Goals Goal 1:: LBP in am upon waking 1/10 at worst and manageable Goal Time Frame: 4-6 Weeks Goal Progress: Goal Met Goal 2:: Overall LBP 90% better Goal Time Frame: 4-6 Weeks Goal Progress: 100% Goal 3:: Patient I in management of LBP with ROM and strength at home to core and gym ex program for [employer] [place]. Goal Time Frame: 4-6 Weeks Goal Progress: Progressing Goal 4:: Hold pelvis in neutral with hip flex testing seated Goal Progress: Goal Met Goal 5:: No need for tylenol each morning to manage pain Goal Time Frame: 4-6 Weeks Goal Progress: Goal Met Goal 6:: PT MAINTAIN PAINFREE STATUS WITHOUT THERAPY[ X 2 WEEKS adn feel confident in gym ex. Goal Time Frame: 2-4 Weeks Anticipated Interventions Anticipated Interventions Patient/Client Instruction: Educate patient on: Condition and Plan of Care For the Purpose of:: To decrease pain, To increase ROM, To improve muscle performance and motor function and To increase tolerance to activity/condition/position Therapeutic Exercise to Include: Strength training, Postural training, In an aquatic setting, Passive ROM, Active ROM and Dynamic Lumbar Stabilization For the Purpose of:: To decrease pain, To increase ROM, To improve nutrient delivery to tissue, To increase tolerance to activity/condition/position, To improve ability of physical actions for home/community/work/leisure and To improve gait and locomotor functions Re-Evaluation Ending Re-evaluation ending: Please do not hesitate to contact me at [phone] by phone or if you have questions or concerns regarding this new plan of care! Sincerely, Clark Ramsey, DPT, OCS, CSCS
--- NOTE | 2023-01-21 15:37 | HP.PT.NRP ---
Patient Information Patient Information: RAYMOND ESPINOZA was seen in my office for initial evaluation on 10/18/22. The following Plan of Care was established for this patient: POC Established Initial Frequency: 2-3x /Week Initial Duration: 4-6 Weeks Anticipated Interventions Patient/Client Instruction: Educate patient on: Condition and Plan of Care For the Purpose of:: To decrease pain, To increase ROM, To improve muscle performance and motor function and To increase tolerance to activity/condition/position Therapeutic Exercise to Include: Strength training, Postural training, In an aquatic setting, Passive ROM, Active ROM and Dynamic Lumbar Stabilization For the Purpose of:: To decrease pain, To increase ROM, To improve nutrient delivery to tissue, To increase tolerance to activity/condition/position, To improve ability of physical actions for home/community/work/leisure and To improve gait and locomotor functions Last Seen Last Seen: This patient was last seen in our office 12/13/22. Pertinent comments regarding their Physical therapy will appear below: Pt seen 13 visits of POC and reported 1100% improvement. She was to f/u 3 weeks later to ensure improvement but did not schedule or attend. I will discontinue her at this point. At this point I will be discontinuing this patient from physical therapy. I would be happy to see this patient again in the future if found appropriate by the physician. Thank you! Clark Ramsey, DPT, OCS, CSCS Balance/Gait/Functional tests Balance/Special Test Scores Functional Gait Assessment Score: 24 % Disability: 20.0000 Oswestry Low Back Score: 0
== END 2022-12-13 19:00 | disposition home or self-care (01) ==
LOC: PT 18:00
PROVIDERS: PCP Family Medicine; Referring Provider Family Medicine; Visit Provider Family Medicine
DX: M54.50 Low back pain, unspecified (principal)
CPT/HCPCS: 97110; 97161; 97530

== ENCOUNTER → 2022-12-28 | Outpatient (CLI) | payer MEDICARE, SELFPAY ==
--- NOTE | 2022-12-28 13:58 | VDLE_ITS ---
Reason For Study: Left leg pain/swelling Procedure LEFT This is a venous duplex using B-mode, color GSV is normal. flow and spectral Doppler. CFV is compressible, spontaneous, phasic, Exam performed in department. competent, and demonstrates normal A preliminary report was called and/or faxed augmentation. to Dr. Chan. FV is compressible, spontaneous, phasic, competent and demonstrates normal augmentation. POP V is compressible, spontaneous, phasic, competent and demonstrates normal augmentation. T/P Trunk is compressible. PTV is compressible. LT PerV is compressible. VL/Venous Duplex US, Unilateral Interpretation Summary Deep veins of the left lower extremity are patent and compressible segmentally. There is no evidence of left lower extremity deep vein thrombosis. Valvular competence appears intac t within the proximal deep venous system on the left . The left great saphenous vein appears patent a nd compressible segmentally. Ordering Physician: Cookie Chan Referring Physician: Cookie Chan Performed By: Miguelina Castillo RVT
== END | disposition home or self-care (01) ==
LOC: CVS 13:27
PROVIDERS: PCP Family Medicine; Referring Provider Family Medicine; Visit Provider Family Medicine
DX: M79.662 Pain in left lower leg (principal)
CPT/HCPCS: 93971

== ENCOUNTER → 2024-03-19 | Outpatient (CLI) | payer MEDICARE, SELFPAY ==
--- NOTE | 2024-03-19 09:03 | BI_ITS ---
MAMMOGRAPHY - BILATERAL SCREENING 3-D TOMOSYNTHESIS REASON FOR EXAM: Female, 78 years old. Routine screening PERTINENT HISTORY: No significant family history. TECHNIQUE: 2-D mammograms and 3-D Tomosynthesis of the breast (s) were performed. CAD was performed. COMPARISON: 08/04/2021 FINDINGS: The breast composition is composed of scattered fibroglandular density. Scattered benign calcifications are seen. No dense spiculated masses or suspicious microcalcifications are identified. No architectural distortion is identified. There is no skin thickening or retraction. There has been no significant change since the prior study. BI/SCRN MAMM (CAD)W/AR BILAT IMPRESSION: No mammographic signs of malignancy. Routine yearly mammograms recommended. ASSESSMENT CATEGORY: BIRADS Category 1: Negative. A letter regarding these results will be sent to the patient by the facility within 30 days. FOLLOW UP RECOMMENDATION: Yearly follow up mammogram recommended. (A) Approximately 10% of breast cancers are not detected by mammography. A normal mammogram should not delay biopsy of a clinically suspicious abnormality. Electronically Signed: Elmer Sutherland MD at 10:57 EST ,
== END | disposition home or self-care (01) ==
LOC: OPBI 09:02
PROVIDERS: PCP Family Medicine; Referring Provider Family Medicine; Visit Provider Family Medicine
DX: Z12.31 Encounter for screening mammogram for malignant neoplasm of breast (principal)
CPT/HCPCS: 77063; 77067